=== PATIENT | female | born 1985 | race Caucasian/White ===

== ENCOUNTER 2019-10-27 05:12 | Emergency (ER) | payer MEDICARE ==
--- NOTE | 2019-10-27 05:17 | ERPHSYRPT ---
- History of Present Illness Time Seen by Provider: 10/27/19 05:15 Source: patient, family Exam Limitations: no limitations - Departure Referrals: JUNIE SALINAS, [employer] W[employer] ATTENDANT [Primary Care Provider] -
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
[2019-10-27 07:42] VITALS: BP 119/71; PULSE 72; O2SAT 99
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
== END 2019-10-27 07:34 | disposition short-term general hospital (02) ==
LOC: ED 05:12
DX: M25.561 Pain in right knee (principal); Z04.71 Encounter for examination and observation following alleged adult physical abuse; T76.21XA Adult sexual abuse, suspected, initial encounter
CPT/HCPCS: 73560; 99284